=== PATIENT | female | born 1985 | race Caucasian/White ===

== ENCOUNTER 2018-01-23 07:57 | Emergency (ER) | payer BC ==
[2018-01-23] MEDS ORDERED: Dexamethasone 10 MG/ML VIAL ONE (08:32)
[2018-01-23] MEDS ORDERED: Ketorolac Tromethamine 60 MG/2 ML VIAL ONE (08:32)
--- NOTE | 2018-01-23 10:26 | RAD ---
LUMBAR SPINE 3 VIEWS: Date: 01/23/18 PROVIDED CLINICAL HISTORY: Low back pain. FINDINGS: Five non-rib bearing lumbar-type vertebral bodies are present. Lumbar alignment appears normal. Verte bral body heights appear preserved. Pedicles appear intact. No lytic or blastic lesions are seen. IMPRESSION: No evidence for an acute osseous abnormality. POS: [facility]
== END 2018-01-23 09:29 | disposition home or self-care (01) ==
LOC: ERS 07:57
DX: M54.5 Low back pain (principal); F41.9 Anxiety disorder, unspecified
CPT/HCPCS: 72100; 96372; J1100; J1885

== ENCOUNTER 2019-01-08 02:23 | Emergency (ER) | payer BC ==
[2019-01-08] MEDS ORDERED: Lidocaine 1% (PF) 30 ML VIAL ONE (04:39)
[2019-01-08] MEDS ORDERED: Lidocaine 1% PF 5 ML VIAL ONE (04:39)
[2019-01-08] MEDS ORDERED: Ondansetron ODT 4 MG TAB ONE (05:20)
[2019-01-08] MEDS ORDERED: traMADol HCl 50 MG TAB ONE (06:07)
--- NOTE | 2019-01-08 09:00 | RAD ---
Right hand 3 views HISTORY: Right hand injury. COMPARISON: 11/10/2010. FINDINGS: Joint spaces are preserved. No acute fracture, dislocation, or aggressive osseous erosions. Soft tissue irregularity along the medial aspect of the hand at the level of the fifth metacarpal head may represent the clinically stated laceration. No radiopaque foreign bodies are apparent. IMPRESSION: No acute osseous abnormalities are demonstrated.
--- NOTE | 2019-01-08 09:01 | RAD ---
Left hand 3 views HISTORY: Left hand injury. FINDINGS: Joint spaces are preserved. No acute fracture, dislocation, or aggressive osseous erosions, or radiopaque foreign bodies. IMPRESSION: No acute osseous abnormalities are demonstrated.
== END 2019-01-08 06:06 | disposition home or self-care (01) ==
LOC: ERS 02:23
DX: S61.217A Laceration without foreign body of left little finger without damage to nail, initial encounter (principal); S61.511A Laceration without foreign body of right wrist, initial encounter; F41.9 Anxiety disorder, unspecified; W25.XXXA Contact with sharp glass, initial encounter
CPT/HCPCS: 12002; J2001; Q0162

== ENCOUNTER 2019-01-09 06:45 | Emergency (ER) | payer BC ==
[2019-01-09 07:36] LABS: #Basophils 0.1 thou/uL (0.0-0.2); #Eosinphils 0.1 thou/uL (0.0-0.7); #Monocytes 0.4 thou/uL (0.11-0.59); #Neutrophils 3.6 thou/uL (1.40-6.50); %Basophils 0.9 % (0.0-1.0); %Eosinophils 2.3 % (0.0-10.0); %Lymphocytes 32.2 % (21.0-51.0); %Monocytes 6.1 % (0.0-10.0); %Neutrophils 58.4 % (42.0-75.0); Hemoglobin 13.5 g/dL (12.0-16.0); Mean Corpuscular HGB CONC 35.1 g/dL (32.0-36.0); Mean Corpuscular Hemoglobin 31.3 pg (27.0-31.0); Mean Platelet Volume 8.3 fL (7.4-10.4); Platelet Count 163 thou/uL (130-400); RBC Distribution Width 11.4 % (11.5-14.5); Red Blood Cell (RBC) Count 4.32 mill/uL (4.20-5.40); White Blood Cell (WBC) Count 6.2 thou/uL (4.8-10.8)
[2019-01-09 07:52] LABS: Anion Gap 12 mmol/L (10-20); BUN (Urea Nitrogen) 11 mg/dL (7.0-18.7); Calc. Creatinine Clearance 0 mL/min (70-130); Calcium 8.9 mg/dL (7.8-10.44); Carbon Dioxide 22 mmol/L (22-29); Chloride 106 mmol/L (98-107); Estimated GFR-MDRD 80; Glucose 117 mg/dL (70-105); Potassium 3.6 mmol/L (3.5-5.1); Sodium 136 mmol/L (136-145)
[2019-01-09] MEDS ORDERED: carBAMazepine 100 mg Chewable Tablet PO SCH (09:30)
[2019-01-09 09:45] LABS: Bilirubin Negative (Negative); Blood, Urine 2+ (Negative); Clarity Clear (Clear); Glucose, Urine (Dipstick) Normal (Negative); Leukocyte 75 Leu/uL (Negative); Mucous/LPF Rare LPF (<2+); Nitrite Negative (Negative); Protein, Urine (Dipstick) 50 mg/dL (Neg-Trace); WBC/HPF 21-50 HPF (0-3)
[2019-01-09 09:47] LABS: Pregnancy Test - Urine (BHCG) Negative (Negative); Pregu Control Background? CLEAR/WHITE (CLR/WHITE); Pregu Control Bar Appear? YES (CONTROL BAR); Specific Gravity 1.031 (1.002-1.036)
[2019-01-09 09:54] LABS: Bacteria/HPF None Seen HPF (None Seen)
== END 2019-01-09 09:40 | disposition home or self-care (01) ==
LOC: ERS 06:45
DX: R56.9 Unspecified convulsions (principal)
CPT/HCPCS: 36415; 80048; 81003; 81015; 81025; 85025; 99285

== ENCOUNTER 2019-06-17 08:56 | Emergency (ER) | payer BC ==
[2019-06-17 09:32] LABS: #Eosinphils 0.1 thou/uL (0.0-0.7); #Lymphocytes 2.1 thou/uL (1.20-3.40); #Monocytes 0.4 thou/uL (0.11-0.59); #Neutrophils 4.5 thou/uL (1.40-6.50); %Basophils 0.4 % (0.0-1.0); %Eosinophils 1.4 % (0.0-10.0); %Lymphocytes 29.2 % (21.0-51.0); %Monocytes 5.6 % (0.0-10.0); %Neutrophils 63.4 % (42.0-75.0); Hemoglobin 14.8 g/dL (12.0-16.0); Mean Corpuscular HGB CONC 35.2 g/dL (32.0-36.0); Mean Corpuscular Hemoglobin 31.6 pg (27.0-31.0); Mean Corpuscular Volume 89.6 fL (78.0-98.0); Mean Platelet Volume 8.5 fL (7.4-10.4); Platelet Count 198 thou/uL (130-400); RBC Distribution Width 11.1 % (11.5-14.5); Red Blood Cell (RBC) Count 4.68 mill/uL (4.20-5.40); White Blood Cell (WBC) Count 7.1 thou/uL (4.8-10.8)
[2019-06-17 10:00] LABS: ALT (SGPT) 21 U/L (8-55); AST (SGOT) 13 U/L (5-34); Albumin 4.7 g/dL (3.5-5.0); Alkaline Phosphatase 86 U/L (40-110); Anion Gap 14 mmol/L (10-20); BUN (Urea Nitrogen) 11 mg/dL (7.0-18.7); Bilirubin, Total 0.5 mg/dL (0.2-1.2); Calc. Creatinine Clearance 0 mL/min (70-130); Calcium 9.4 mg/dL (7.8-10.44); Carbon Dioxide 24 mmol/L (22-29); Chloride 104 mmol/L (98-107); Estimated GFR-MDRD 80; Globulin 2.8 g/dL (2.4-3.5); Glucose 94 mg/dL (70-105); Lipase 18 U/L (8-78); Potassium 3.9 mmol/L (3.5-5.1); Protein, Total 7.5 g/dL (6.0-8.3); Sodium 138 mmol/L (136-145)
[2019-06-17] MEDS ORDERED: Ketorolac Tromethamine 30 MG/ML VIAL ONE (10:14)
--- NOTE | 2019-06-17 10:51 | ULT ---
PELVIC ULTRASOUND: Transabdominal and endovaginal ultrasound of pelvis performed. INDICATION: Left pelvic pain. FINDINGS: Uterus has a normal sonographic appearance. Endometrial stripe is mildly prominent measured at 1.5 c m. The right ovary is identified and appears unremarkable with normal blood flow seen with spectral anal ysis and Doppler. The left ovary is identified. There is a hypoechoic area with a central echogenicity probably repres enting an involuting cyst measuring in the 1 cm range. There is blood flow to the left ovary confirmed with color Doppler and spectral analysis. No free fluid. IMPRESSION: No evidence of ovarian torsion. Probable involuting cyst in the left ovary as described above. Cons ider followup ultrasound in 4-6 weeks to reassess the left ovary. POS: [facility]
[2019-06-17 10:57] LABS: Bilirubin Negative (Negative); Blood, Urine Negative (Negative); Clarity Clear (Clear); Glucose, Urine (Dipstick) Normal (Negative); Leukocyte Negative Leu/uL (Negative); Nitrite Negative (Negative); Protein, Urine (Dipstick) Negative (Neg-Trace); Urobilinogen Normal mg/dL (Less than 2)
[2019-06-17 10:58] LABS: Pregnancy Test - Urine (BHCG) Negative (Negative); Pregu Control Background? CLEAR/WHITE (CLR/WHITE); Pregu Control Bar Appear? YES (CONTROL BAR); Specific Gravity 1.018 (1.002-1.036)
== END 2019-06-17 11:52 | disposition home or self-care (01) ==
LOC: ERS 08:56
DX: N83.202 Unspecified ovarian cyst, left side (principal); F41.9 Anxiety disorder, unspecified
CPT/HCPCS: 76856; 80053; 81003; 81025; 83690; 85025; 96374; J1885

== ENCOUNTER 2020-08-24 15:12 | Outpatient (CLI) | payer BC | END 2020-08-24 15:13 | disposition home or self-care (01) | LOC: BICRAD 15:12 | PROVIDERS: ATTEND Family Medicine | DX: M25.551 Pain in right hip (principal) ==

== ENCOUNTER 2021-04-02 08:04 | Outpatient (CLI) | payer BC | END 2021-04-02 08:05 | disposition home or self-care (01) | LOC: ULT 08:04 | PROVIDERS: ATTEND Family Medicine | DX: R19.03 Right lower quadrant abdominal swelling, mass and lump (principal) | CPT/HCPCS: 76882 ==